=== PATIENT | male | born 1995 | race Caucasian/White ===

== ENCOUNTER 2024-11-19 16:26 | Emergency (ER) | payer OTHER, SELFPAY ==
[2024-11-19 16:27] VITALS: BP 134/92; PULSE 120; RESP 18; TEMP 37.3; O2SAT 96
[2024-11-19 16:30] VITALS: BP 134/92; PULSE 120; RESP 18; TEMP 37.3; O2SAT 96
[2024-11-19] MEDS: 0.9% Normal Saline (1000mL) 1,000 ML 1000 ML IV (17:20)
[2024-11-19 17:23] LABS: Hematocrit 38.0 % (40-54); Hemoglobin 13.6 g/dL (13.0-16.5); Immature Granulocytes Count 0.010 X10^3/uL (0.0-0.0); Mean Corp Hgb Conc 35.8 g/dL (32-36); Mean Corpuscular Volume 82.4 fL (80-94); Mean Platelet Vol. 10.1 fl (6.2-12.0); NRBC Flagged by Analyzer 0 % (0-5); Platelet Count 204 K/mm3 (150-450); RBC Distribution Width CV 11.8 % (11.6-14.6); RBC Distribution Width SD 35.2 fl (35.1-43.9); Red Blood Count 4.61 M/mm3 (4.6-6.2); White Blood Count 6.6 K/mm3 (4.4-11.0)
[2024-11-19 17:48] VITALS: BP 119/77; PULSE 89; RESP 16; TEMP 37.2; O2SAT 94
[2024-11-19 18:00] VITALS: BP 116/72; PULSE 87; RESP 18; TEMP 36.7; O2SAT 95
[2024-11-19 18:24] LABS: AST(SGOT) 39 U/L (<=37); Alanine Aminotransfer ALT/SGPT 52 U/L (<=46); Albumin, Serum 4.1 g/dL (3.5-5.0); Alkaline Phosphatase 78 U/L (40-129); Anion Gap 12 (5-15); BUN 9 mg/dL (4-19); BUN/Creat Ratio 9.1 RATIO (10-20); Calcium,Total 9.2 mg/dL (7.6-11.0); Carbon Dioxide 23.5 mmol/L (21.0-32.0); Chloride 100 mmol/L (98-108); Globulin 3.6 g/dL (2.2-4.2); Glucose 97 mg/dL (70-99); Potassium 4.3 mmol/L (3.3-5.1)
[2024-11-19 19:07] VITALS: BP 125/76; PULSE 79; RESP 16; TEMP 36.8; O2SAT 95
== END 2024-11-19 19:11 | disposition home or self-care (01) ==
PROVIDERS: Emergency Provider Emergency Medicine; PCP Family Medicine; Visit Provider Emergency Medicine
DX: J18.9 Pneumonia, unspecified organism (principal)
CPT/HCPCS: 71046; 80053; 83605; 85025; 87631; 96360; 96361; 99285; A4216